=== PATIENT | female | born 1935 ===

== ENCOUNTER 2022-06-08 05:30 | Day surgery (SDC) | payer OTHER ==
[~2022-06-08] VITALS: Ht 154.9 cm; Wt 70.3 kg
[~2022-06-08 05:30] MED LIST: HYDROCHLOROTHIA25 MG PO; INDUR PO; LOTENSIN40 MG PO; SIMVASTA PO
[2022-06-08] MEDS ORDERED: DUI500 PO (08:30)
[2022-06-08] MEDS ORDERED: ULTRACET PO (08:30)
== END 2022-06-08 12:00 | disposition home or self-care (01) ==
LOC: CIR.AMB 05:30
PROVIDERS: ATTEND Orthopaedic Surgery Sports Medicine
DX: S83.241A Other tear of medial meniscus, current injury, right knee, initial encounter (principal); M17.11 Unilateral primary osteoarthritis, right knee; Z20.822 Contact with and (suspected) exposure to COVID-19; I10 Essential (primary) hypertension; G47.33 Obstructive sleep apnea (adult) (pediatric)